=== PATIENT | female | born 1970 | race African-American/Black ===

== ENCOUNTER → 2020-08-11 | Outpatient (CLI) | payer MEDICAID ==
[~2020-08-11] MED LIST: CARVEDILOL25 MG PO; CRESTOR5 MG PO; HYDRALAZINE 5050 MG PO; HYDROCODON-ACE1 EAC7 PO; METRONIDAZOLE500 M4 PO; RENVELA800 MG PO; [UNRECOGNIZED DRUG - OTHER] PO
== END ==
LOC: M.LAB 11:41
PROVIDERS: ATTEND Surgery
DX: Z01.812 Encounter for preprocedural laboratory examination (principal); Z20.822 Contact with and (suspected) exposure to COVID-19; N18.6 End stage renal disease

== ENCOUNTER → 2020-08-14 | Day surgery (SDC) | payer MEDICAID ==
--- NOTE | ~2020-08-14 | OP ---
[facility] [address] [place] [address] OPERATIVE REPORT Name: BINU AGUDELO Room: [facility]#: [id number] Admission: 08/14/20 Attend Phys: Eldon Stephenson Discharge: Date of : 68 Report #: [id number] THIS REPORT FOR: cc: JOAN SAVAGE MD Physician not on staff ~ Eldon Stephenson MD DATE OF SERVICE: 08/14/2020 PREOPERATIVE DIAGNOSIS: End-stage renal disease. POSTOPERATIVE DIAGNOSIS: End-stage renal disease. OPERATION: 1. Laparoscopic placement of peritoneal dialysis catheter. 2. Laparoscopic omentopexy. SURGEON: Eldon Stephenson MD ANESTHESIA: General. ESTIMATED BLOOD LOSS: Minimal. SPECIMEN: None. DESCRIPTION OF PROCEDURE: After informed consent was obtained, the patient was brought to the operating room and placed supine. SCDs were placed and working, preoperative antibiotics were administered, general anesthesia was induced. The abdomen was prepped and draped in the usual sterile fashion. A 5 mm incision was made in the left upper quadrant. A 5 mm trocar was placed under direct vision. Pneumoperitoneum was established. A left-sided 5 mm trocar was placed. I then took the omentum and brought it up to the right upper quadrant of the abdomen. A 2-0 Vicryl suture was used using a PMI suture passer to pass it through the fascia and then back out through the omentum and then back out through the skin. Two sutures were placed in the right upper quadrant. This performed the omentopexy. An 8 mm trocar was placed in the left rectus sheath above the umbilicus. A 62 cm Covidien catheter was placed through the trocar. Trocar was then removed. Catheter was then tunneled to the left upper quadrant of the abdomen. The skin was closed with 4-0 Monocryl. Catheter was flushed easily with 750 mL of heparinized saline. It drained 250 mL easily. [place] [address] OPERATIVE REPORT Name: BINU AGUDELO Room: [facility].#: [id number] Admission: 08/14/20 Attend Phys: Eldon Stephenson Discharge: Date of : 68 Report #: [id number] COMPLICATIONS: None. DISPOSITION: The patient was taken to recovery in satisfactory condition. By: [id number] Stephenson MD /taylor
[2020-08-14 14:06] LABS: HEMATOCRIT 31.4 % (37.0-47.0); HEMOGLOBIN 10.5 gm/dL (12.0-15.0); MCH 32.6 pg (26.0-34.0); MCHC 33.3 g/dL (28.0-37.0); MCV 98.1 fL (80.0-100.0); MPV 8.5 fl. (7.2-11.1); RBC 3.2 mil/uL (4.20-5.00); RDW-CV 16.7 % (10.5-14.5)
[2020-08-14 14:12] LABS: CALCIUM 9.8 mg/dL (8.5-10.1); CREATININE 9.7 mg/dL (0.6-1.3); POTASSIUM 4.5 mmol/L (3.5-5.1)
--- NOTE | 2020-08-14 16:04 | EKG ---
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: : 1970 Requested By: Eugenio Oconnor Order Number: [id number] Reading MD: Kamron Pantoja Measurements Intervals [place] Rate: 71 P: 31 TN: 177 QRS: 35 QRSD: 102 T: 48 QT: 392 QTc: 426 Interpretive Statements Sinus rhythm Probable left ventricular hypertrophy ST elev, probable normal early repol pattern No previous ECG available for comparison Electronically Signed On 08-14-2020 16:04:21 PREMIUM REPRESENTATIVE by Kamron Pantoja [email or web address] <ELECTRONICALLY SIGNED> By: Kamron Pantoja MD, [facility] 08/14/20 1604 1338 1338 Kamron Pantoja MD, FAC /EPI
== END | disposition home or self-care (01) ==
LOC: M.SUR
PROVIDERS: Anesthesiology; ATTEND Surgery
DX: N18.6 End stage renal disease (principal); Z79.899 Other long term (current) drug therapy; Z88.0 Allergy status to penicillin; Z88.2 Allergy status to sulfonamides

== ENCOUNTER 2020-08-16 11:16 | Emergency (ER) | payer MEDICAID ==
[~2020-08-16] VITALS: Ht 177.8 cm; Wt 122.5 kg
[2020-08-16 11:57] LABS: ABSOLUTE EOSINOPHILS 0.5 thou/uL (0.0-0.7); ABSOLUTE LYMPHOCYTES 0.9 thou/uL (0.8-5.3); ABSOLUTE MONOCYTES 0.5 thou/uL (0.0-1.2); ABSOLUTE NEUTROPHILS 5.5 thou/uL (1.6-8.1); BASOPHILS 0.4 %; EOSINOPHILS 6.5 %; HEMOGLOBIN 10.2 gm/dL (12.0-15.0); LYMPHOCYTES 12.3 %; MCH 32.6 pg (26.0-34.0); MCHC 32.9 g/dL (28.0-37.0); MCV 99.3 fL (80.0-100.0); MPV 8.6 fl. (7.2-11.1); NUCLEATED RBCS 0 /100WBC; PLATELET COUNT* 140 thou/uL (150-400); POLYS 73.8 %; RBC 3.12 mil/uL (4.20-5.00); RDW-CV 17.5 % (10.5-14.5); WBC 7.5 thou/uL (4.0-11.0)
[2020-08-16 12:07] LABS: CALCIUM 9.3 mg/dL (8.5-10.1); POTASSIUM 4.8 mmol/L (3.5-5.1)
[2020-08-16 12:09] LABS: CREATININE 12.6 mg/dL (0.6-1.3)
[2020-08-16 12:11] LABS: ALBUMIN 3.3 g/dL (3.4-5.0); TOTAL BILIRUBIN 0.2 mg/dL (<0.1-1.0); TOTAL PROTEIN 7.4 g/dL (6.4-8.2)
[2020-08-16 12:56] VITALS: BP 179/94
--- NOTE | 2020-08-17 15:06 | EKG ---
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 : 1970 Requested By: Michael Pate Order Number: [id number] MD: Kamron Pantoja Measurements Intervals [place] Rate: 75 P: 28 [place]: 169 QRS: 38 QRSD: 103 T: 38 QT: 393 QTc: 439 Interpretive Statements Sinus rhythm Atrial premature complex Probable left ventricular hypertrophy ST elevation probable normal early repolarization pattern Compared to ECG 08/14/2020 13:38:50 Atrial premature complex(es) now present Electronically Signed On 08-17-2020 15:06:34 MATERIALS PLANNING ANALYST by Kamron Pantoja [email or web address] <ELECTRONICALLY SIGNED> By: Kamron Pantoja MD, FACC 08/17/20 1506 1159 1159 Kamron Pantoja MD, [facility] /EPI
== END 2020-08-16 13:00 | disposition home or self-care (01) ==
LOC: M.ERS 11:16
PROVIDERS: Emergency Medicine Emergency Medical Services
DX: Z48.01 Encounter for change or removal of surgical wound dressing (principal); I13.11 Hypertensive heart and chronic kidney disease without heart failure, with stage 5 chronic kidney disease, or end stage renal disease; N18.6 End stage renal disease; Z88.0 Allergy status to penicillin; Z88.8 Allergy status to other drugs, medicaments and biological substances